=== PATIENT | male | born 1945 | race Caucasian/White ===

== ENCOUNTER 2022-06-08 09:00 | Outpatient (RCR) | payer OTHER | END 2022-06-23 | disposition home or self-care (01) | LOC: ONC 09:00 | PROVIDERS: ATTEND Internal Medicine Hematology & Oncology | DX: C67.9 Malignant neoplasm of bladder, unspecified (principal) | CPT/HCPCS: 99204 ==

== ENCOUNTER → 2022-07-27 | Outpatient (CLI) | payer OTHER ==
--- NOTE | 2022-07-27 19:16 | Diagnostic Imaging Report ---
PROCEDURE: MR imaging abdomen without contrast. TECHNIQUE: Multiplanar, multisequence MR imaging of the abdomen was performed without contrast. INDICATION: Bladder cancer. COMPARISON: CT abdomen and pelvis of 02/28/2019. FINDINGS: No signal dropout in the liver to indicate steatosis. No nodularity of the liver surface that would suggest cirrhosis. No focal hepatic lesion is present. The spleen and pancreas are normal in appearance. No adrenal mass. No abdominal lymphadenopathy. Normal caliber abdominal aorta. Stomach is partially filled with fluid and there is no wall thickening. No dilated loops of bowel to indicate bowel obstruction. No worrisome focal osseous lesions. No renal mass. Mild dilation of the left renal pelvis is expected status post cystectomy and presumed urinary diversion. IMPRESSION: 1. No features of metastatic disease in the abdomen by noncontrast imaging. Dictated by: Dictated on workstation # [id number]
== END ==
LOC: RAD 13:00
PROVIDERS: ATTEND Internal Medicine Hematology & Oncology
DX: C67.9 Malignant neoplasm of bladder, unspecified (principal)
CPT/HCPCS: 74181

== ENCOUNTER → 2022-07-27 | Outpatient (CLI) | payer OTHER ==
--- NOTE | 2022-07-27 18:18 | Diagnostic Imaging Report ---
PROCEDURE: CT chest without contrast. TECHNIQUE: Multiple contiguous axial images were obtained through the chest without the use of intravenous contrast. Auto Exposure Controls were utilized during the CT exam to meet ALARA standards for radiation dose reduction. DATE: July 27, 2022. COMPARISON: None. INDICATION: 77-year-old male, history of bladder cancer. Evaluation for metastatic disease to the chest. PROCEDURE: Axial noncontrasted CT images of the chest. Noncontrasted limits the evaluation of the mediastinum and vascular structures. FINDINGS: There is no identified noncalcified pulmonary nodule or lung mass. There is no otherwise noted focal airspace consolidation. There is no pneumothorax. There is no pleural effusion. The central airways are patent. There are coronary artery calcifications. There are additional areas of atherosclerotic disease. The heart is not enlarged. There is no pericardial effusion. There are calcified subcarinal and right hilar lymph nodes most consistent with sequela of prior granulomatous disease. There is a low-attenuation left thyroid nodule on axial image 25 measuring 9 mm in size. There is bilateral moderate gynecomastia. There are multiple punctate calcifications in the liver and spleen consistent with sequela of prior granulomatous disease. The gallbladder is surgically absent. There is a small hiatal hernia. There are atherosclerotic calcifications. There are degenerative changes of the spine. There is no identified acute bony abnormality. IMPRESSION: 1. No evidence of metastatic disease at the level of the chest. 2. Moderate bilateral gynecomastia. 3. Sequelae of prior granulomatous disease. 4. No identified acute cardiopulmonary abnormality. Dictated by: Dictated on workstation # [id number]
--- NOTE | 2022-07-27 19:48 | Diagnostic Imaging Report ---
PROCEDURE: MRI pelvis without contrast. TECHNIQUE: Multiplanar, multisequence MRI of the pelvis was performed without contrast. INDICATION: Bladder cancer status post resection. COMPARISON: MRI abdomen of 05/21/2020. FINDINGS: Cystectomy has been performed. There is no soft tissue mass at the surgical bed to suggest local recurrence. No lymphadenopathy within the pelvis. No free pelvic fluid. Sigmoid colon diverticulosis without diverticulitis. No worrisome focal osseous lesions. Multilevel degenerative disc disease in lower lumbar spine. Status post laminectomies at L4-L5. IMPRESSION: 1. Cystectomy without features of local recurrence in the pelvis. 2. No regional lymphadenopathy. Dictated by: Dictated on workstation # [id number]
== END ==
LOC: RAD 11:12
PROVIDERS: ATTEND Internal Medicine Hematology & Oncology
DX: C67.9 Malignant neoplasm of bladder, unspecified (principal); Z90.6 Acquired absence of other parts of urinary tract
CPT/HCPCS: 71250; 72195

== ENCOUNTER 2022-08-03 09:07 | Outpatient (RCR) | payer OTHER | END 2022-08-23 | disposition home or self-care (01) | LOC: ONC 09:07 | PROVIDERS: ATTEND Internal Medicine Hematology & Oncology | DX: C67.9 Malignant neoplasm of bladder, unspecified (principal); I10 Essential (primary) hypertension; E11.9 Type 2 diabetes mellitus without complications; E78.5 Hyperlipidemia, unspecified | CPT/HCPCS: 99213 ==

== ENCOUNTER → 2023-01-24 | Outpatient (CLI) | payer OTHER ==
--- NOTE | 2023-01-24 15:25 | Diagnostic Imaging Report ---
PROCEDURE: CT chest without contrast. TECHNIQUE: Multiple contiguous axial images were obtained through the chest without the use of intravenous contrast. Auto Exposure Controls were utilized during the CT exam to meet ALARA standards for radiation dose reduction. INDICATION: Malignant tumor of the urinary bladder. COMPARISON: 07/27/2022. FINDINGS: A 1 cm left thyroid hypodensity is again identified and not significantly changed. Bilateral gynecomastia. Calcified mediastinal and right hilar lymph nodes are present. No pathologically enlarged lymph nodes within the chest. Scattered vascular calcifications, particularly in the coronary arteries. The heart is within normal limits in size. No significant pericardial effusion. No pleural effusion. Small hiatal hernia. The trachea is patent. Calcified granuloma within the right lower lobe. The lungs are otherwise clear. Calcified splenic and hepatic granulomas. Cholecystectomy. Visualized upper abdomen is otherwise unremarkable. Scattered osseous degenerative changes without acute osseous abnormality. IMPRESSION: No acute abnormality within the chest. Evidence of chronic granulomatous disease. Small hiatal hernia. Scattered vascular calcifications including significant calcifications within the coronary arteries. Additional stable findings as above. Dictated by: Dictated on workstation # [id number]
--- NOTE | 2023-01-24 18:17 | Diagnostic Imaging Report ---
EXAMINATION: MRI of the abdomen without contrast. MRCP TECHNIQUE: Multiplanar, multisequence MR images of the abdomen were obtained without intravenous contrast including 3D MIP MRCP images. HISTORY: MALIGNANT TUMOR OF URINARY BLADDER COMPARISON: MRI abdomen from 07/27/2022. FINDINGS: Liver: No suspicious liver lesions. No surface nodularity. No steatosis. Ducts: No biliary ductal dilation. Gallbladder: Cholecystectomy. Pancreas: Normal. Spleen: Normal. Adrenals: Normal. Kidneys: Unchanged mild dilation of the left ureter which is expected with urinary diversion. No solid or concerning cystic mass. Small exophytic cyst in the mid aspect left kidney is unchanged. Bowel: Ileostomy is noted in the right lower quadrant. No dilated loops of bowel. Other: No lymphadenopathy. Visualized portions of the thorax are normal. No suspicious osseus lesions. IMPRESSION: 1. No metastatic disease in the abdomen. Dictated by: Dictated on workstation # [id number]
--- NOTE | 2023-01-24 18:28 | Diagnostic Imaging Report ---
PROCEDURE: MRI pelvis without contrast. TECHNIQUE: Multiplanar, multisequence MRI of the pelvis was performed without contrast. INDICATION: Malignant neoplasm of the urinary bladder. COMPARISON: MRI abdomen performed concurrently. MRI pelvis of 07/27/2022. FINDINGS: Status post cystectomy. No soft tissue mass at the surgical bed to suggest local recurrence. Additionally, there is no regional lymphadenopathy. Urinary diversion with ileal conduit formation and right lower quadrant ileostomy is similar in appearance. Prostate is not visualized and may also be surgically absent. No concerning focal osseous lesion within the pelvis. IMPRESSION: 1. Cystectomy without features of local recurrence. 2. No regional lymphadenopathy. Dictated by: Dictated on workstation # [id number]
== END ==
LOC: RAD 12:20
PROVIDERS: ATTEND Internal Medicine Hematology & Oncology
DX: C67.9 Malignant neoplasm of bladder, unspecified (principal); K44.9 Diaphragmatic hernia without obstruction or gangrene; I25.10 Atherosclerotic heart disease of native coronary artery without angina pectoris; Z90.6 Acquired absence of other parts of urinary tract
CPT/HCPCS: 71250; 72195; 74181

== ENCOUNTER 2023-02-01 09:09 | Outpatient (RCR) | payer OTHER | END 2023-02-20 | disposition home or self-care (01) | LOC: ONC 09:09 | PROVIDERS: ATTEND Internal Medicine Hematology & Oncology | DX: C67.9 Malignant neoplasm of bladder, unspecified (principal); I10 Essential (primary) hypertension; E11.9 Type 2 diabetes mellitus without complications; E78.5 Hyperlipidemia, unspecified ==

== ENCOUNTER 2023-07-05 08:30 | Emergency (ER) | payer OTHER ==
[~2023-07-05] VITALS: Ht 180 cm; Wt 89.0 kg
[2023-07-05 09:02] LABS: BASOPHILS # (AUTO) 0.1 10^3/uL (0.0-0.1); BASOPHILS % (AUTO) 1 % (0-10); EOSINOPHILS # (AUTO) 0.4 10^3/uL (0.0-0.3); EOSINOPHILS % (AUTO) 3 % (0-10); HEMATOCRIT 29 % (40-54); HEMOGLOBIN 9.1 g/dL (13.3-17.7); LYMPHOCYTES # (AUTO) 1.4 10^3/uL (1.0-4.0); LYMPHOCYTES % (AUTO) 11 % (12-44); MEAN CORPUSCULAR HEMOGLOBIN 28 pg (25-34); MEAN CORPUSCULAR HGB CONC 32 g/dL (32-36); MEAN CORPUSCULAR VOLUME 89 fL (80-99); MEAN PLATELET VOLUME 9.5 fL (9.0-12.2); MONOCYTES # (AUTO) 0.9 10^3/uL (0.0-1.0); MONOCYTES % (AUTO) 7 % (0-12); NEUTROPHILS # (AUTO) 9.6 10^3/uL (1.8-7.8); NEUTROPHILS % (AUTO) 77 % (42-75); PLATELET COUNT 294 10^3/uL (130-400); WHITE BLOOD COUNT 12.5 10^3/uL (4.3-11.0)
--- NOTE | 2023-07-05 09:07 | ED Abdominal Pain ---
General Chief Complaint: Abdominal/GI Problems Stated Complaint: LLQ PAIN Nursing Triage Note: Patient has presented to ER with cc of lower left abd pain since last Tuesday. He has not taken anything for the pain. He has presented to ER for evaluation. Source of Information: Patient Exam Limitations: No Limitations History of Present Illness Date Seen by Provider: Jul 05, 2023 Time Seen by Provider: 08:36 Initial Comments 78-year-old male with past medical history most notable for CKD (has been told he will likely need dialysis soon which he does not want to go forward with) and prior bladder cancer now status post cystectomy with ilial conduit coming in due to left lower quadrant abdominal pain. Started Tuesday, intermittent, sharp, severe. Pain got worse this morning. Its not associated with nausea or vomiti ng, no diarrhea, chest pain, shortness of breath, fever, rash, or any other concerns. He does not recall having pain like this before. He is otherwise denying any other acute complaints. Allergies and Home Medications Allergies Coded Allergies: morphine (Verified Allergy, Unknown, 07/05/23) Patient Home Medication List Home Medication List Reviewed: Yes Amoxicillin/Potassium Clav (Augmentin 500-125 Tablet) 500 Mg-125 Mg Tablet, 1 EACH PO DAILY Prescribed by: NANCY HAYNES on 07/05/23 0935 Hydrocodone/Acetaminophen (Hydrocodone-Acetamin 5-325 mg) 5 Mg-325 Mg Tablet, 1 TAB PO Q6H PRN for PAIN-MODERATE (5-7) Prescribed by: NANCY HAYNES on 07/05/23 0936 Ondansetron (Ondansetron Odt) 4 Mg Tab.rapdis, 4 MG SL Q6H PRN for NAUSEA/VOMITING Prescribed by: NANCY HAYNES on 07/05/23 0935 Review of Systems Review of Systems Constitutional: No fever EENTM: No Symptoms Reported Respiratory: No Symptoms Reported Cardiovascular: No Symptoms Reported Gastrointestinal: See HPI Genitourinary: No Symptoms Reported Musculoskeletal: no symptoms reported Skin: no symptoms reported Psychiatric/Neurological: No Symptoms Reported Endocrine: No Symptoms Reported Hematologic/Lymphatic: No Symptoms Reported All Other Systems Reviewed Negative Unless Noted: Yes Past Mjyittg-Sctxjs-Vyifdt Hx Patient Social History Tobacco Use?: No Use of E-Cig and/or Vaping dev: No Substance use?: No Alcohol Use?: No Past Medical History Surgery/Hospitalization HX: bladder removal for cancer Surgeries: Yes Physical Exam Vital Signs Vital Signs - First Documented 07/05/23 08:45 Temp 36.6 Pulse 79 Resp 18 B/P (MAP) 158/73 (101) Pulse Ox 96 O2 Delivery Room Air Capillary Refill : Height/Weight/BMI Height: '" Weight: lbs. oz. kg; 27.00 BMI Method: General Appearance: WD/WN, no apparent distress HEENT: PERRL/EOMI, normal ENT inspection, pharynx normal Neck: non-tender, full range of motion, supple, normal inspection Respiratory: chest non-tender, lungs clear, normal breath sounds, no respiratory distress, no accessory muscle use Cardiovascular: regular rate, rhythm, no edema Gastrointestinal: normal bowel sounds, soft; No distended, No guarding, No rebound; tenderness (LLQ), other (Ileal conduit with stoma patent, skin around it is normal-appearing, it is draining yellow clear urine) Extremities: normal range of motion, non-tender, normal inspection, no calf tenderness, normal capillary refill Back: normal inspection, no CVA tenderness Neurologic/Psychiatric: no motor/sensory deficits, alert, normal mood/affect Skin: normal color, warm/dry Progress/Results/Core Measures Results/Orders Lab Results Laboratory Tests Test 07/05/23 08:45 Range/Units White Blood Count 12.5 H 4.3-11.0 10^3/uL Red Blood Count 3.25 L 4.30-5.52 10^6/uL Hemoglobin 9.1 L 13.3-17.7 g/dL Hematocrit 29 L 40-54 % Mean Corpuscular Volume 89 80-99 fL Mean Corpuscular Hemoglobin 28 25-34 pg Mean Corpuscular Hemoglobin Concent 32 32-36 g/dL Red Cell Distribution Width 13.4 10.0-14.5 % Platelet Count 294 130-400 10^3/uL Mean Platelet Volume 9.5 9.0-12.2 fL Immature Granulocyte % (Auto) 0 % Neutrophils (%) (Auto) 77 H 42-75 % Lymphocytes (%) (Auto) 11 L 12-44 % Monocytes (%) (Auto) 7 0-12 % Eosinophils (%) (Auto) 3 0-10 % Basophils (%) (Auto) 1 0-10 % Neutrophils # (Auto) 9.6 H 1.8-7.8 10^3/uL Lymphocytes # (Auto) 1.4 1.0-4.0 10^3/uL Monocytes # (Auto) 0.9 0.0-1.0 10^3/uL Eosinophils # (Auto) 0.4 H 0.0-0.3 10^3/uL Basophils # (Auto) 0.1 0.0-0.1 10^3/uL Immature Granulocyte # (Auto) 0.0 0.0-0.1 10^3/uL Prothrombin Time 13.9 12.2-14.7 SEC INR Comment 1.0 0.8-1.4 Activated Partial Thromboplast Time 38 H 24-35 SEC Sodium Level 136 135-145 MMOL/L Potassium Level 3.6 3.6-5.0 MMOL/L Chloride Level 103 98-107 MMOL/L Carbon Dioxide Level 15 L 21-32 MMOL/L Anion Gap 18 H 5-14 MMOL/L Blood Urea Nitrogen 64 H 7-18 MG/DL Creatinine 6.33 H 0.60-1.30 MG/DL Estimat Glomerular Filtration Rate 9 BUN/Creatinine Ratio 10 Glucose Level 125 H 70-105 MG/DL Calcium Level 9.4 8.5-10.1 MG/DL Corrected Calcium 9.4 8.5-10.1 MG/DL Magnesium Level 2.1 1.6-2.4 MG/DL Total Bilirubin 0.4 0.1-1.0 MG/DL Aspartate Amino Transf (AST/SGOT) 13 5-34 U/L Alanine Aminotransferase (ALT/SGPT) 9 0-55 U/L Alkaline Phosphatase 120 40-136 U/L C-Reactive Protein 7.24 H <0.50 MG/DL Total Protein 7.6 6.4-8.2 GM/DL Albumin 4.0 3.2-4.5 GM/DL Lipase 32 8-78 U/L My Orders Orders - NANCY HAYNES MD Cbc With Automated Diff (07/05/23 08:55) Comprehensive Metabolic Panel (07/05/23 08:55) Lipase (07/05/23 08:55) Magnesium (07/05/23 08:55) Protime With Inr (07/05/23 08:55) Partial Thromboplastin Time (07/05/23 08:55) Crp Fs (07/05/23 08:55) Ct Abdomen/Pelvis Wo (07/05/23 08:55) Hydrocodone/Apap 5/325 Tablet (Hydrocod (07/05/23 09:15) Medications Given in ED Current Medications Medications Dose Ordered Sig/Damion Route Start Time Stop Time Status Last Admin Dose Admin Acetaminophen/ Hydrocodone Bitart 1 ea ONCE ONCE PO 07/05/23 09:15 07/05/23 09:16 DC 07/05/23 09:16 1 EA Vital Signs/I&O 07/05/23 08:45 Temp 36.6 Pulse 79 Resp 18 B/P (MAP) 158/73 (101) Pulse Ox 96 O2 Delivery Room Air Blood Pressure Mean: 101 Progress Progress Note : Progress Note 78-year-old male with above history coming in due to left lower quadrant abdominal pain. ABCs were intact and vitals were stable on presentation. Physical exam with left lower quadrant abdominal pain with no signs of peritonitis. An IV was placed and basic labs were obtained and were significant for mild leukocytosis, elevated creatinine which the patient states is his baseline and he is being evaluated for, and an elevated CRP. CT abdomen pelvis ordered and interpreted by me showing inflammatory fat stranding in his left lower quadrant that would be concerning for diverticulitis. The radiology read agrees with this. His creatinine clearance is just above 10, we will give him Augmentin 500 mg every day for the next week as well as hydrocodone and a prescription. He did get 1 hydrocodone here for pain control. I believe he is otherwise stable for discharge with outpatient follow-up. He was sent home with strict return precautions. Diagnostic Imaging Diagonstic Imaging: CT (abd/pelvis) Comments NAME: JOSE ALBERTO SERRANO Mike [facility] REC#: [id number] PT STATUS: REG ER : 1945 PHYSICIAN: NANCY HAYNES MD ADMIT DATE: 07/05/23/ER FS Draft Date of Exam:07/05/23 CT ABDOMEN/PELVIS WO PROCEDURE: CT abdomen and pelvis without contrast. TECHNIQUE: Multiple contiguous axial images were obtained through the abdomen and pelvis without the use of intravenous contrast. Auto Exposure Controls were utilized during the CT exam to meet ALARA standards for radiation dose reduction. INDICATION: Left lower quadrant pain COMPARISON: Limited to MR of the abdomen and pelvis 01/24/2023 that exam was performed with the history provided of a bladder malignancy. Also correlated with overlapped levels obtained at chest CT 01/24/2023. There are convincing features of acute diverticulitis in the proximal sigmoid colon in the left lower quadrant where there is regional diverticula, segmental bowel wall thickening and perisigmoidal stranding and edema. No abscess or drainable fluid collection. No free air or appreciable extraluminal gas to suggest transmural perforation. No findings of a fistula. No resultant bowel obstruction. There is a apparent cystectomy with the right lower quadrant urinary diversion showing no complication. There is an appendix normal in appearance. There is a mild dilatation of the left renal collecting system. There is an exophytic low attenuating left renal nodule measuring 1.5 cm, this is T2 bright on the prior MRI and unchanged in the left renal collecting system dilatation. There is improved in magnitude from that study. The right kidney unobstructed, nonfocal and nonacute. There is no abdominal pelvic mesenteric or retroperitoneal adenopathy. There is a small hiatal hernia chronic. Benign scattered calcified granulomatous disease in the liver and spleen stable and benign. The adrenals are negative. There is no lymphadenopathy. There is degenerative and postsurgical changes to the spine chronic. No acute appearing bony abnormality. The lung bases unremarkable. Impression: Acute sigmoid diverticulitis without evidence for perforation, abscess, fistula or obstruction. Postsurgical changes of cystectomy and urinary diversion without findings suggestive of metastatic disease. Dictated on workstation # [id number] Dict: 07/05/23 0946 Trans: 07/05/23 0959 [facility] [id number] Interpreted by: LEIGH TRUJILLO Electronically signed by: Departure Impression Primary Impression: Diverticulitis Disposition: 01 HOME, SELF-CARE Condition: Stable Departure-Patient Inst. Decision time for Depature: 10:00 Referrals: CHRISTINA KOROMA (PCP/Family) Primary Care Physician Patient Instructions: Diverticulitis Add. Discharge Instructions: You have diverticulitis which is an infection in your colon on that left side of your abdomen where you are hurting. You will take an antibiotic once daily for the next week. Pain medicines were also sent to your pharmacy. Follow-up with your regular doctor if you are not seeing improvement. Scripts Ondansetron (Ondansetron Odt) 4 Mg Tab.rapdis 4 MG SL Q6H PRN for NAUSEA/VOMITING for 5 Days, #20 TAB Prov: NANCY HAYNES MD 07/05/23 Hydrocodone/Acetaminophen (Hydrocodone-Acetamin 5-325 mg) 5 Mg-325 Mg Tablet 1 TAB PO Q6H PRN for PAIN-MODERATE (5-7) for 3 Days, #12 TAB Prov: NANCY HAYNES MD 07/05/23 Amoxicillin/Potassium Clav (Augmentin 500-125 Tablet) 500 Mg-125 Mg Tablet 1 EACH PO DAILY for 7 Days, #7 TAB Prov: NANCY HAYNES MD 07/05/23 NANCY HAYNES MD Jul 05, 2023 09:07
[2023-07-05] MEDS ORDERED: HYDROcodone/ACETAMINOPHEN 5 MG/325 MG TABLET PO ONE (09:15)
[2023-07-05 09:21] LABS: BILIRUBIN,TOTAL 0.4 MG/DL (0.1-1.0); CALCIUM 9.4 MG/DL (8.5-10.1); CREATININE SERUM 6.33 MG/DL (0.60-1.30); MAGNESIUM 2.1 MG/DL (1.6-2.4); POTASSIUM 3.6 MMOL/L (3.6-5.0); TOTAL PROTEIN 7.6 GM/DL (6.4-8.2)
[2023-07-05 09:22] LABS: PROTHROMBIN TIME PATIENT 13.9 SEC (12.2-14.7)
[2023-07-05] MEDS ORDERED: AMOX-355 PO (09:35)
[2023-07-05] MEDS ORDERED: ACHD5005 PO (09:35)
[2023-07-05] MEDS ORDERED: ONDA4TAB11 SL (09:35)
--- NOTE | 2023-07-05 09:59 | Diagnostic Imaging Report ---
PROCEDURE: CT abdomen and pelvis without contrast. TECHNIQUE: Multiple contiguous axial images were obtained through the abdomen and pelvis without the use of intravenous contrast. Auto Exposure Controls were utilized during the CT exam to meet ALARA standards for radiation dose reduction. INDICATION: Left lower quadrant pain COMPARISON: Limited to MR of the abdomen and pelvis 01/24/2023 that exam was performed with the history provided of a bladder malignancy. Also correlated with overlapped levels obtained at chest CT 01/24/2023. There are convincing features of acute diverticulitis in the proximal sigmoid colon in the left lower quadrant where there is regional diverticula, segmental bowel wall thickening and perisigmoidal stranding and edema. No abscess or drainable fluid collection. No free air or appreciable extraluminal gas to suggest transmural perforation. No findings of a fistula. No resultant bowel obstruction. There is a apparent cystectomy with the right lower quadrant urinary diversion showing no complication. There is an appendix normal in appearance. There is a mild dilatation of the left renal collecting system. There is an exophytic low attenuating left renal nodule measuring 1.5 cm, this is T2 bright on the prior MRI and unchanged in the left renal collecting system dilatation. There is improved in magnitude from that study. The right kidney unobstructed, nonfocal and nonacute. There is no abdominal pelvic mesenteric or retroperitoneal adenopathy. There is a small hiatal hernia chronic. Benign scattered calcified granulomatous disease in the liver and spleen stable and benign. The adrenals are negative. There is no lymphadenopathy. There is degenerative and postsurgical changes to the spine chronic. No acute appearing bony abnormality. The lung bases unremarkable. Impression: Acute sigmoid diverticulitis without evidence for perforation, abscess, fistula or obstruction. Postsurgical changes of cystectomy and urinary diversion without findings suggestive of metastatic disease. Dictated by: Dictated on workstation # [id number]
[2023-07-05 10:19] VITALS: BP 137/66
== END 2023-07-05 10:09 | disposition home or self-care (01) ==
LOC: EDUNIT# 08:30 → ER FS 08:33
DX: K57.32 Diverticulitis of large intestine without perforation or abscess without bleeding (principal); R79.89 Other specified abnormal findings of blood chemistry; R79.82 Elevated C-reactive protein (CRP); Z88.5 Allergy status to narcotic agent
CPT/HCPCS: 36415; 74176; 80053; 83690; 83735; 85025; 85610; 85730; 86141

== ENCOUNTER 2023-08-02 09:04 | Outpatient (RCR) | payer OTHER ==
[~2023-08-02 09:04] MED LIST: ACHD5005 PO; AMOX-355 PO; ONDA4TAB11 SL
== END 2023-08-23 | disposition home or self-care (01) ==
LOC: ONC 09:04
PROVIDERS: ATTEND Internal Medicine Hematology & Oncology
DX: C67.9 Malignant neoplasm of bladder, unspecified (principal); I10 Essential (primary) hypertension; E11.9 Type 2 diabetes mellitus without complications; E78.5 Hyperlipidemia, unspecified
CPT/HCPCS: 99214